=== PATIENT | female | born 1985 | race Caucasian/White ===

== ENCOUNTER → 2017-08-01 | Outpatient (REF) | payer BC | LOC: M LAB REF 16:52 | DX: J06.9 Acute upper respiratory infection, unspecified (principal) | CPT/HCPCS: 87081 ==

== ENCOUNTER → 2023-04-08 | Outpatient (CLI) | payer BC ==
[2023-04-08 15:55] LABS: HEMATOCRIT 36.7 % (36.0-47.0); HEMOGLOBIN 12.5 g/dl (12.0-15.5); MEAN CORPUSCULAR HEMOGLOBIN 30.9 pg (27.0-33.0); MEAN CORPUSCULAR HGB CONC 34.1 g/dl (32.0-36.5); MEAN CORPUSCULAR VOLUME 90.8 fl (80.0-96.0); PLATELET COUNT, AUTOMATED 316 10^3/uL (150-450); RED BLOOD COUNT 4.04 10^6/uL (4.00-5.40); WHITE BLOOD COUNT 9.6 10^3/uL (4.0-10.0)
[2023-04-08 16:49] LABS: HIV 1&2 SCREEN NEGATIVE (NEGATIVE)
[2023-04-08 16:55] LABS: HEPATITIS C VIRUS ABY INDEX 0.05 INDEX (<0.8)
[2023-04-08 17:46] LABS: CHLAMYDIA DNA AMPLIFICATION NEGATIVE (NEGATIVE); GC DNA AMPLIFICATION NEGATIVE (NEGATIVE)
== END ==
LOC: M PLALAB 14:38
PROVIDERS: ATTEND Advanced Practice Midwife
DX: Z34.91 Encounter for supervision of normal pregnancy, unspecified, first trimester (principal)

== ENCOUNTER → 2023-06-07 | Outpatient (CLI) | payer BC | LOC: M WHC 14:48 | PROVIDERS: ATTEND Obstetrics & Gynecology | DX: O32.1XX0 Maternal care for breech presentation, not applicable or unspecified (principal); Z3A.19 19 weeks gestation of pregnancy ==

== ENCOUNTER → 2023-06-07 | Outpatient (CLI) | payer BC ==
[2023-06-07 18:18] LABS: HEMATOCRIT 37.7 % (36.0-47.0); HEMOGLOBIN 12.6 g/dl (12.0-15.5); MEAN CORPUSCULAR HEMOGLOBIN 30.6 pg (27.0-33.0); MEAN CORPUSCULAR HGB CONC 33.4 g/dl (32.0-36.5); MEAN CORPUSCULAR VOLUME 91.5 fl (80.0-96.0); PLATELET COUNT, AUTOMATED 283 10^3/uL (150-450); RED BLOOD COUNT 4.12 10^6/uL (4.00-5.40); WHITE BLOOD COUNT 10.3 10^3/uL (4.0-10.0)
[2023-06-07 18:37] LABS: ERYTHROCYTE SEDIMENTATION RATE 27 mm/hr (0-20)
[2023-06-07 18:47] LABS: ALBUMIN 2.9 G/DL (3.2-5.2); ALKALINE PHOSPHATASE 62 U/L (46-116); ALT/SGPT 19 U/L (7.0-40); AST/SGOT 16 U/L (<34); BILIRUBIN,TOTAL 0.2 MG/DL (0.3-1.2); BLOOD UREA NITROGEN 9 MG/DL (9-23); CALCIUM LEVEL 8.4 MG/DL (8.5-10.1); CARBON DIOXIDE LEVEL 25 MMOL/L (20-31); CHLORIDE LEVEL 106 MMOL/L (98-107); CREATININE FOR GFR 0.54 MG/DL (0.55-1.30); GLOMERULAR FILTRATION RATE > 60.0 (>60); GLUCOSE, FASTING 70 MG/DL (60-100); SODIUM LEVEL 138 MMOL/L (136-145); TOTAL PROTEIN 6.3 G/DL (5.7-8.2)
== END ==
LOC: M PLALAB 16:07
PROVIDERS: ATTEND Internal Medicine Gastroenterology
DX: R10.32 Left lower quadrant pain (principal)

== ENCOUNTER → 2023-06-07 | Outpatient (CLI) | payer BC | LOC: M PLALAB 16:04 | PROVIDERS: ATTEND Advanced Practice Midwife | DX: O09.512 Supervision of elderly primigravida, second trimester (principal); Z3A.00 Weeks of gestation of pregnancy not specified ==

== ENCOUNTER → 2023-06-30 | Outpatient (CLI) | payer BC | LOC: M WHC 14:47 | PROVIDERS: ATTEND Advanced Practice Midwife | DX: O28.3 Abnormal ultrasonic finding on antenatal screening of mother (principal); Z3A.23 23 weeks gestation of pregnancy ==

== ENCOUNTER → 2023-07-22 | Outpatient (CLI) | payer BC ==
[2023-07-22 18:19] LABS: HEMATOCRIT 37.3 % (36.0-47.0); HEMOGLOBIN 12.5 g/dl (12.0-15.5); MEAN CORPUSCULAR HEMOGLOBIN 31.5 pg (27.0-33.0); MEAN CORPUSCULAR HGB CONC 33.5 g/dl (32.0-36.5); PLATELET COUNT, AUTOMATED 284 10^3/uL (150-450); RED BLOOD COUNT 3.97 10^6/uL (4.00-5.40); WHITE BLOOD COUNT 11.2 10^3/uL (4.0-10.0)
[2023-07-22 19:44] LABS: GC DNA AMPLIFICATION NEGATIVE (NEGATIVE)
== END ==
LOC: M PLALAB 14:46
PROVIDERS: ATTEND Advanced Practice Midwife
DX: Z34.02 Encounter for supervision of normal first pregnancy, second trimester (principal)

== ENCOUNTER → 2023-08-16 | Outpatient (CLI) | payer BC | LOC: M RAD 14:52 | PROVIDERS: ATTEND Obstetrics & Gynecology | DX: O26.843 Uterine size-date discrepancy, third trimester (principal); Z3A.29 29 weeks gestation of pregnancy ==

== ENCOUNTER → 2023-09-29 | Outpatient (CLI) | payer BC | LOC: M WHC 14:45 | PROVIDERS: ATTEND Obstetrics & Gynecology | DX: O99.613 Diseases of the digestive system complicating pregnancy, third trimester (principal); Z3A.36 36 weeks gestation of pregnancy ==

== ENCOUNTER → 2023-09-30 | Outpatient (REF) | payer BC | LOC: M SFHCWAGY 16:53 | PROVIDERS: ATTEND Advanced Practice Midwife | DX: Z34.80 Encounter for supervision of other normal pregnancy, unspecified trimester (principal); K51.90 Ulcerative colitis, unspecified, without complications ==

== ENCOUNTER → 2023-10-14 | Outpatient (CLI) | payer BC ==
[2023-10-14 18:22] LABS: HEMATOCRIT 35.9 % (36.0-47.0); HEMOGLOBIN 11.8 g/dl (12.0-15.5); MEAN CORPUSCULAR HEMOGLOBIN 29.6 pg (27.0-33.0); MEAN CORPUSCULAR HGB CONC 32.9 g/dl (32.0-36.5); MEAN CORPUSCULAR VOLUME 90.2 fl (80.0-96.0); PLATELET COUNT, AUTOMATED 258 10^3/uL (150-450); RED BLOOD COUNT 3.98 10^6/uL (4.00-5.40)
[2023-10-14 18:36] LABS: URIC ACID 3.1 MG/DL (3.1-7.8)
[2023-10-14 18:38] LABS: LDH LACTATE DEHYDROGENASE 237 U/L (120-246)
[2023-10-14 18:39] LABS: ALT/SGPT 44 U/L (7.0-40); AST/SGOT 48 U/L (<34); BILIRUBIN,TOTAL 0.3 MG/DL (0.3-1.2); CREATININE FOR GFR 0.58 MG/DL (0.55-1.30); GLOMERULAR FILTRATION RATE > 60.0 (>60)
== END ==
LOC: M PLALAB 16:14
PROVIDERS: ATTEND Advanced Practice Midwife
DX: O16.3 Unspecified maternal hypertension, third trimester (principal); Z3A.00 Weeks of gestation of pregnancy not specified

== ENCOUNTER 2023-10-17 12:39 | Inpatient (IN) | payer BC ==
[2023-10-17] VITALS (8 sets, daily range): BP systolic 113–137; BP diastolic 84–93; O2SAT 98
[~2023-10-17] VITALS: Ht 157.5 cm; Wt 100.7 kg
[2023-10-17] MEDS ORDERED: MESA800T8 PO (12:59)
[2023-10-17] MEDS ORDERED: PRENTAB9 PO (12:59)
[2023-10-17] MEDS ORDERED: OXYTOCIN DRIP 30 UNITS in IV 1 EA IV PRN (13:00)
[2023-10-17] MEDS ORDERED: CARBOPROST TROMETHAMINE 250 MCG/ML AMP IM PRN (13:00)
[2023-10-17] MEDS ORDERED: LIDOCAINE 1% MDV 20ML VIAL INFIL PRN (13:00)
[2023-10-17] MEDS ORDERED: OXYTOCIN INJ 10UNITS/ML 1ML VIAL IM PRN (13:00)
[2023-10-17] MEDS ORDERED: TRANEXAMIC ACID INJection 1,000 MG in NS 100 ML IV PRN (13:00)
[2023-10-17 14:20] LABS: MEAN CORPUSCULAR HEMOGLOBIN 29.8 pg (27.0-33.0); MEAN CORPUSCULAR HGB CONC 33.3 g/dl (32.0-36.5); MEAN CORPUSCULAR VOLUME 89.3 fl (80.0-96.0); PLATELET COUNT, AUTOMATED 257 10^3/uL (150-450); RED BLOOD COUNT 4.03 10^6/uL (4.00-5.40); WHITE BLOOD COUNT 11.1 10^3/uL (4.0-10.0)
[2023-10-17] MEDS: miSOPROStol 50MCG 1/2 TABLET PO SCH (14:25)
[2023-10-17 14:34] LABS: TOTAL PROTEIN,RANDOM URINE 24.1 MG/DL (0.0-14.0)
[2023-10-17 14:36] LABS: URIC ACID 3.1 MG/DL (3.1-7.8)
[2023-10-17 14:39] LABS: CREATININE,RANDOM URINE 74.3 MG/DL; LDH LACTATE DEHYDROGENASE 224 U/L (120-246)
[2023-10-17 14:40] LABS: ALT/SGPT 44 U/L (7.0-40); AST/SGOT 42 U/L (<34); BILIRUBIN,TOTAL 0.3 MG/DL (0.3-1.2); CREATININE FOR GFR 0.47 MG/DL (0.55-1.30); GLOMERULAR FILTRATION RATE > 60.0 (>60)
[2023-10-17 15:20] LABS: HEPATITIS C VIRUS ABY INDEX < 0.02 INDEX (<0.8)
[2023-10-17] MEDS ORDERED: HOME MED LIST COMPLETE! XX SCH (16:05)
[2023-10-17] MEDS ORDERED: MESALAMINE 250 MG CR CAP PO SCH (19:00)
[2023-10-18] VITALS (34 sets, daily range): BP systolic 84–167; BP diastolic 49–104; O2SAT 99
[2023-10-18 10:42] LABS: HEMATOCRIT 35.8 % (36.0-47.0); HEMOGLOBIN 12.1 g/dl (12.0-15.5); MEAN CORPUSCULAR HGB CONC 33.8 g/dl (32.0-36.5); MEAN CORPUSCULAR VOLUME 88.6 fl (80.0-96.0); PLATELET COUNT, AUTOMATED 256 10^3/uL (150-450); RED BLOOD COUNT 4.04 10^6/uL (4.00-5.40); WHITE BLOOD COUNT 14.4 10^3/uL (4.0-10.0)
[2023-10-18] MEDS: LR 1,000 ML IV SCH (10:58)
[2023-10-18] MEDS: OXYTOCIN DRIP 30 UNITS in IV 1 EA IV SCH (10:59)
[2023-10-18 11:07] LABS: ALBUMIN 2.3 G/DL (3.2-5.2); ALKALINE PHOSPHATASE 153 U/L (46-116); ALT/SGPT 40 U/L (7.0-40); AST/SGOT 35 U/L (<34); BILIRUBIN,TOTAL 0.3 MG/DL (0.3-1.2); BLOOD UREA NITROGEN 9 MG/DL (9-23); CARBON DIOXIDE LEVEL 22 MMOL/L (20-31); CHLORIDE LEVEL 108 MMOL/L (98-107); CREATININE FOR GFR 0.59 MG/DL (0.55-1.30); GLOMERULAR FILTRATION RATE > 60.0 (>60); GLUCOSE, FASTING 133 MG/DL (60-100); POTASSIUM SERUM 3.9 MMOL/L (3.5-5.1); SODIUM LEVEL 135 MMOL/L (136-145); TOTAL PROTEIN 5.7 G/DL (5.7-8.2)
[2023-10-18] MEDS ORDERED: LR 500 ML IV PRN (22:40)
[2023-10-18] MEDS ORDERED: EPIDURAL/PCA KEYS XX PRN (22:40)
[2023-10-18] MEDS ORDERED: diphenhydrAMINE 50MG/ML VIAL IV PRN (22:40)
[2023-10-18] MEDS ORDERED: ePHEDrine SULFATE 25 MG/5 ML(5MG/ML) SYRINGE IVP PRN (22:40)
[2023-10-18] MEDS ORDERED: ONDANSETRON 4MG 2ML VIAL IV PRN (22:40)
[2023-10-18] MEDS ORDERED: NALOXONE INJ 0.4MG/1ML VIAL IV PRN (22:40)
[2023-10-19] VITALS (15 sets, daily range): BP systolic 101–146; BP diastolic 62–94; TEMP 98; O2SAT 95–100
[2023-10-19] MEDS: LACTATED RINGER'S 1000 ML IV STA (00:25)
[2023-10-19] MEDS: FENTANYL/ROPIVACAINE/NACL BAG 100 ML EPIDURAL SCH (00:26)
[2023-10-19] MEDS: ceFAZolin SOD 2 GM in IV 1 EA IV ONE (01:10)
[2023-10-19] MEDS: AZITHROMYCIN INJ 500 MG, VIAL MATE ADAPTER 1 EACH in NS 250 ML IV ONE (01:10)
[2023-10-19] MEDS ORDERED: AZITHROMYCIN INJ 500MG VIAL As Ordered ONE (01:13)
[2023-10-19] MEDS ORDERED: ceFAZolin 2 GM/D5W 50 ML IV BAG As Ordered ONE (01:14)
[2023-10-19] MEDS ORDERED: OXYTOCIN INJ 10UNITS/ML 1ML VIAL As Ordered ONE (01:17)
[2023-10-19] MEDS ORDERED: MORPHINE PRES-FREE INJ 10 MG/10 ML VIAL As Ordered ONE (01:17)
[2023-10-19] MEDS ORDERED: PHENYLephrine 500MCG 5ML (100MCG/ML) SYRINGE As Ordered ONE (01:34)
[2023-10-19] MEDS ORDERED: PHENYLEPHRINE 10MG/ML 1ML VIAL As Ordered ONE (01:46)
[2023-10-19] MEDS ORDERED: KETOROLAC 60MG 2ML VIAL As Ordered ONE (02:19)
[2023-10-19] MEDS ORDERED: ONDANSETRON 4MG 2ML VIAL As Ordered ONE (02:19)
[2023-10-19] MEDS ORDERED: RHO(D) IMMUNE GLOBULIN/MALTOSE 500MCG(2500IU)/2.2ML VIAL (WINRHO) IM SCH (02:35)
[2023-10-19] MEDS ORDERED: ACETAMINOPHEN 500 MG TAB PO SCH (02:35)
[2023-10-19] MEDS ORDERED: oxyCODONE 5MG TAB PO PRN (02:35)
[2023-10-19] MEDS ORDERED: OXYTOCIN 30UNITS IN 0.9% NaCl 500ML IV BAG As Ordered ONE (02:40)
[2023-10-19] MEDS: OXYTOCIN DRIP 30 UNITS in IV 1 EA IV SCH ×2 (03:25→03:28)
[2023-10-19] MEDS: ACETAMINOPHEN 500 MG TAB PO SCH (05:08)
[2023-10-19] MEDS: diphenhydrAMINE 50MG CAP PO ONE (05:08)
[2023-10-19] MEDS: METOCLOPRAMIDE INJ 10MG/2ML VIAL IV PRN (06:41)
[2023-10-19] MEDS: PRENATAL VITAMINS CHEWABLE TABLET PO SCH (07:49)
[2023-10-19] MEDS: KETOROLAC 30 MG/ML 1ML VIAL IV SCH (07:49)
[2023-10-19] MEDS: DOCUSATE SODIUM 100MG CAPSULE PO PRN (20:38)
[2023-10-20 02:00] VITALS: BP 114/68; O2SAT 98
[2023-10-20] MEDS: IBUPROFEN 600MG TAB PO SCH (02:44)
[2023-10-20 05:46] VITALS: BP 113/63; O2SAT 99
[2023-10-20 06:16] LABS: HEMATOCRIT 27.8 % (36.0-47.0); MEAN CORPUSCULAR HEMOGLOBIN 29.5 pg (27.0-33.0); MEAN CORPUSCULAR HGB CONC 32.4 g/dl (32.0-36.5); MEAN CORPUSCULAR VOLUME 91.1 fl (80.0-96.0); PLATELET COUNT, AUTOMATED 195 10^3/uL (150-450); RED BLOOD COUNT 3.05 10^6/uL (4.00-5.40); WHITE BLOOD COUNT 11.8 10^3/uL (4.0-10.0)
[2023-10-20 10:00] VITALS: BP 111/76; O2SAT 98
[2023-10-20 14:00] VITALS: BP 122/77; O2SAT 97
[2023-10-20] MEDS ORDERED: IBUP-1022 PO (15:50)
[2023-10-20] MEDS ORDERED: ACET-683 PO (15:50)
[2023-10-20] MEDS ORDERED: OXYC-517 PO (15:50)
[2023-10-20] MEDS ORDERED: COLA100C5 PO (15:50)
[2023-10-20 18:00] VITALS: BP 126/83; O2SAT 98
[2023-10-20 22:00] VITALS: BP 129/82; O2SAT 97
[2023-10-21 02:00] VITALS: BP 111/67; O2SAT 99
[2023-10-21] MEDS: oxyCODONE 5MG TAB PO PRN (03:57)
[2023-10-21 06:00] VITALS: BP 131/78; O2SAT 98
[2023-10-21 07:50] VITALS: BP 132/84; O2SAT 99
[2023-10-21] MEDS: SIMETHICONE 80MG CHEW TAB PO PRN (08:56)
[2023-10-21] MEDS: MEASLES,MUMPS,RUBELLA VACCINE INJ (MMR-II) SC.IMMUN ONE (09:00)
[2023-10-21 18:00] VITALS: BP 136/84; O2SAT 98
[2023-10-22 06:00] VITALS: BP 128/71; O2SAT 96
== END 2023-10-22 15:46 | disposition home or self-care (01) | DRG 540 ==
LOC: M LDI 12:39 → M OBS 10-19 03:45
PROVIDERS: ADMIT Advanced Practice Midwife; ATTEND Advanced Practice Midwife
PROC: 3E0P7VZ Introduction of Hormone into Female Reproductive, Via Natural or Artificial Opening (ICD-10-PCS; 2023-10-17)
PROC: 3E033VJ Introduction of Other Hormone into Peripheral Vein, Percutaneous Approach (ICD-10-PCS; 2023-10-18)
PROC: 10907ZC Drainage of Amniotic Fluid, Therapeutic from Products of Conception, Via Natural or Artificial Opening (ICD-10-PCS; 2023-10-18)
PROC: 10D00Z1 Extraction of Products of Conception, Low, Open Approach (ICD-10-PCS; principal; 2023-10-19 01:36)
DX: O14.94 Unspecified pre-eclampsia, complicating childbirth (principal); K51.90 Ulcerative colitis, unspecified, without complications; O41.03X0 Oligohydramnios, third trimester, not applicable or unspecified; Z37.0 Single live birth; Z3A.38 38 weeks gestation of pregnancy; O09.523 Supervision of elderly multigravida, third trimester; O99.62 Diseases of the digestive system complicating childbirth; Z91.013 Allergy to seafood; Z79.899 Other long term (current) drug therapy; O76 Abnormality in fetal heart rate and rhythm complicating labor and delivery